=== PATIENT | male | born 1990 | race Caucasian/White ===

== ENCOUNTER 2016-06-17 12:49 | Emergency (ER) | payer MEDICAID, OTHER ==
[~2016-06-17] VITALS: Ht 165.1 cm; Wt 85.0 kg
[2016-06-17 12:58] VITALS: Ht 165.1 cm; Wt 85.0 kg
[2016-06-17] MEDS ORDERED: IBUPROFEN 800 MG TAB PO ONE (16:30)
--- NOTE | 2016-06-17 16:57 | ERD ---
ER Documentation Chief Complaint Date/Time DATE: 06/17/16 TIME: 16:53 Chief Complaint Complains of left ankle pain after a fall HPI This is a 25-year-old male that presents to the emergency department complaining of 2 days of pain over his left ankle and foot after he had a mechanical trip and fall on inverted left foot. The patient did not hear popping sensation of his knee. He did not take any analgesic medication prior to arrival. He states the pain is exacerbated with ambulation. The pain is 10 out of 10 in intensity. He stated there was swelling over his left ankle with no bruising. He did not hit his head or lose consciousness ROS All systems reviewed and are negative except as per history of present illness. PMhx/Soc Medical and Surgical Hx: pt denies Medical Hx, pt denies Surgical Hx Physical Exam Vitals Vital Signs Date Time Temp Pulse Resp B/P Pulse Ox O2 Delivery O2 Flow Rate FiO2 06/17/16 12:58 97.8 64 20 114/75 100 Physical Exam Constitutional:Well-developed. Well-nourished. HEENT:Normocephalic. Atraumatic.Pupils were equal round reactive to light. Moist mucous membranes.No tonsillar exudates. No nasoseptal hematoma. No hemotympanum Neck: No nuchal rigidity. No lymphadenopathy. No posterior cervical spine tenderness or step-offs. Respiratory: Not using accessory muscles of respiration.Lungs were clear to auscultation bilaterally. No rhonchi. No rales. No wheezing. Muscle skeletal: Full range of motion of both the upper and lower extremities bilaterally.Normal muscle tone.No assymetrical calf tenderness or swelling. Tenderness over the left lateral malleolus. No tenderness over the base of the fifth metatarsal. No tenderness over the midfoot on the left. Patient is able to plantarflex and dorsiflex the left foot but this does exacerbate pain. No tenderness over the left medial malleolus. Patient able to ambulate more than 4 steps in the emergency department but this exacerbated pain. No laxity on valgus or varus stress testing of the left knee Skin: No petechia, no purpura. No lesions on the palms or the soles of the feet. No maculopapular rash. NEURO: Patient was alert, awake, orientated x3.No facial droop. Gait observed and normal with no ataxia.Speech had regular rate and rhythm. No focal neurological deficits. Results 24 hrs Current Medications Medications (Trade) Dose Ordered Sig/Akbar Route PRN Reason Start Time Stop Time Status Last Admin Dose Admin Ibuprofen (Motrin) 800 mg ONCE ONCE PO 06/17/16 16:30 06/17/16 16:31 DC 06/17/16 16:33 Procedures/MDM This patient presented to the emergency department with traumatic left ankle pain. Utilizing the Kleberg ankle and knee rules radiographic imaging was obtained of the patient's foot and ankle on the left with no evidence of a fracture. 3 views were obtained and reviewed by myself as well as the radiologist. The patient was given Motrin for analgesic control and placed in an Guillaume bandage and given crutches. I also indicates the patient that he would benefit from an outpatient MRI as I could not rule out ligamentous injury. There is no overlying physical exam findings to suggest cellulitis or skin breakdown. Compartments were soft of the left lower extremity Departure Diagnosis: Primary Impression: Ankle sprain Encounter type: initial encounter Involved ligament of ankle: unspecified ligament Laterality: left Qualified Code: S93.402A - Sprain of left ankle, unspecified ligament, initial encounter Condition: LILLIAN Mai June 17, 2016 16:57
[2016-06-17] MEDS ORDERED: IBUP800T25 PO (16:58)
--- NOTE | 2016-06-17 17:09 | RADRPT ---
PROCEDURE: XR Left Ankle. CLINICAL INDICATION: Left ankle pain. TECHNIQUE: 3 views. Frontal, lateral, and oblique. COMPARISON: None. FINDINGS: There is no fracture or dislocation. The soft tissues are normal. Articular surfaces are intact. There is no lytic or blastic lesion. There is no radiopaque foreign body. IMPRESSION: 1. Normal images of the left ankle. RPTAT: QQ .Nelson Jeong MD, MD Date Time Electronically viewed and signed by .Nelson Jeong MD, on 06/17/2016 17:09 .R/
--- NOTE | 2016-06-17 17:10 | RADRPT ---
PROCEDURE: XR Left Foot. CLINICAL INDICATION: Left foot pain. TECHNIQUE: Three views. Frontal, lateral, and oblique. COMPARISON: None. FINDINGS: There is no fracture or dislocation. The soft tissues are normal. Articular surfaces are intact. There is no lytic or blastic lesion. There is no radiopaque foreign body. IMPRESSION: 1. Normal images of the left foot. RPTAT: QQ .Nelson Jeong MD, MD Date Time Electronically viewed and signed by .Nelson Jeong MD, MD on 06/17/2016 17:10 .R/
== END 2016-06-17 18:06 | disposition home or self-care (01) ==
LOC: FTE 12:49
DX: S93.402A Sprain of unspecified ligament of left ankle, initial encounter (principal); W01.0XXA Fall on same level from slipping, tripping and stumbling without subsequent striking against object, initial encounter; Y92.9 Unspecified place or not applicable
CPT/HCPCS: 73610; 73630; Z7502; Z7610